=== PATIENT | male | born 1995 | race Caucasian/White ===

== ENCOUNTER 2016-09-27 03:24 | Emergency (ER) | payer SELFPAY ==
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
[2016-09-27 03:35] VITALS: BP 115/75; PULSE 88; TEMP 98; BMI 19.5
[2016-09-27] MEDS ORDERED: OXYCODONE/APAP 5/325MG COMBO TABLET PO ONE (04:33)
[2016-09-27] MEDS ORDERED: OXYCODONE/APAP 5/325MG COMBO TABLET ONE (04:36)
== END 2016-09-27 04:39 | disposition home or self-care (01) ==
LOC: JER 03:24
PROC: 0PSPXZZ Reposition Right Metacarpal, External Approach (ICD-10-PCS; principal; 2016-09-27)
PROC: 2W3CX1Z Immobilization of Right Lower Arm using Splint (ICD-10-PCS; 2016-09-27)
DX: S62.326A Displaced fracture of shaft of fifth metacarpal bone, right hand, initial encounter for closed fracture (principal); W22.8XXA Striking against or struck by other objects, initial encounter; Y93.89 Activity, other specified; Y92.89 Other specified places as the place of occurrence of the external cause
CPT/HCPCS: 73130-TC-RT; 99281-25

== ENCOUNTER 2022-05-26 17:36 | Emergency (ER) | payer BC ==
[2022-05-26 18:04] VITALS: BP 115/61; PULSE 98; RESP 17; TEMP 98.2; BMI 20.4
== END 2022-05-26 19:37 | disposition home or self-care (01) ==
LOC: JER 17:36 → JERFT 17:36
PROC: 2W3JX1Z Immobilization of Right Finger using Splint (ICD-10-PCS; principal; 2022-05-26)
DX: S62.304A Unspecified fracture of fourth metacarpal bone, right hand, initial encounter for closed fracture (principal); W22.8XXA Striking against or struck by other objects, initial encounter; Y04.0XXA Assault by unarmed brawl or fight, initial encounter
CPT/HCPCS: 73130-TC-RT-FY; 99283-25

== ENCOUNTER 2022-06-06 12:59 | Emergency (ER) | payer BC ==
[2022-06-06 13:15] VITALS: BP 120/66; PULSE 64; RESP 18; TEMP 97.4; BMI 20.4
[2022-06-06] MEDS ORDERED: SODIUM CHLORIDE 1,000 ML IV STA (13:40)
== END 2022-06-06 15:18 | disposition home or self-care (01) ==
LOC: JER 12:59
PROC: 3E0337Z Introduction of Electrolytic and Water Balance Substance into Peripheral Vein, Percutaneous Approach (ICD-10-PCS; principal; 2022-06-06)
DX: G44.009 Cluster headache syndrome, unspecified, not intractable (principal)
CPT/HCPCS: 96360; 99284-25